=== PATIENT | female | born 1990 | race African-American/Black ===

== ENCOUNTER 2018-07-14 12:14 | Emergency (ER) | payer SELFPAY ==
[~2018-07-14] VITALS: Ht 157.5 cm; Wt 54.4 kg
[2018-07-14 12:31] VITALS: BP 122/77
[2018-07-14] MEDS ORDERED: PERM60CR12 TP (12:56)
--- NOTE | 2018-07-14 12:56 | PHYS DOC ---
Past Medical History Past Medical History: No Pertinent History Past Surgical History: No Surgical History Alcohol Use: None Drug Use: None Adult General Chief Complaint Chief Complaint: SKIN RASH/ABSCESS HPI HPI Patient is a 27 year old female who presents to the emergency room today with complaints of a rash for the last month. Patient states the rash started on her feet between her toes and gradually spread up to her groin and then started to affect her hands. She states that the rash is extremely itchy at night. Patient states that she suspects that this is scabies infection, she has checked her mattresses and sleeping areas for bedbugs and has not found any evidence of bedbugs. Patient states her boyfriend initially had the rash and since it has spread to her. Review of Systems Review of Systems Constitutional: Denies fever or chills [] Respiratory: Denies cough or shortness of breath [] Integument: See HPI Neurologic: Denies headache, focal weakness or sensory changes [] Physical Exam Physical Exam Constitutional: Well developed, well nourished, no acute distress, non-toxic appearance. [] HENT: Normocephalic, atraumatic, bilateral external ears normal, nose normal. [] Eyes: conjunctiva normal, no discharge. [] Skin: Warm, dry; erythematous papules noted in bilateral groins, webbings of hands, and to feet consistent with scabies, Extremities: No cyanosis, no clubbing, ROM intact, no edema. [] Neurologic: Alert and oriented X 3, normal motor function, normal sensory function, no focal deficits noted. [] Psychologic: Affect normal, judgement normal, mood normal. [] Current Patient Data Vital Signs Vital Signs Date Time Temp Pulse Resp B/P (MAP) Pulse Ox O2 Delivery O2 Flow Rate FiO2 07/14/18 12:31 98.2 71 18 122/77 (92) 98 Room Air 98.2 EKG EKG [] Radiology/Procedures Radiology/Procedures [] Course & Med Decision Making Course & Med Decision Making Pertinent Labs and Imaging studies reviewed. (See chart for details) [] Dragon Disclaimer Dragon Disclaimer This electronic medical record was generated, in whole or in part, using a voice recognition dictation system. Departure Departure Impression: Primary Impression: Scabies Disposition: 01 HOME, SELF-CARE Condition: STABLE Patient Instructions: Scabies Additional Instructions: Fill prescription and use as directed. Wash all clothing and bed linens in hot water and dry all clothing, bag items that are not washable in a sealed plastic bag for 72 hours. Follow up with your primary care doctor if symptoms persist. Scripts Permethrin (PERMETHRIN) 60 Gm Cream..g. 1 JULIÁN TP ONCE, #60 GM 0 Refills Prov: BERTO SOUSA APRN 07/14/18 BERTO SOUSA APRN Jul 14, 2018 12:56
== END 2018-07-14 13:09 | disposition home or self-care (01) ==
LOC: ER 12:14
DX: B86 Scabies (principal)
CPT/HCPCS: 99282

== ENCOUNTER 2018-07-24 21:40 | Emergency (ER) | payer SELFPAY ==
[~2018-07-24] VITALS: Ht 157.5 cm; Wt 54.4 kg
[~2018-07-24 21:40] MED LIST: PERM60CR12 TP
[2018-07-24 21:43] VITALS: BP 118/66
[2018-07-24 22:02] LABS: BILIRUBIN,URINE NEGATIVE (NEG); CLARITY,URINE CLOUDY; COLOR,URINE YELLOW; NITRITE,URINE NEGATIVE (NEG); PH,URINE 7.5; PROTEIN,URINE NEGATIVE (NEG-TRACE)
[2018-07-24 22:13] LABS: BACTERIA,URINE 0 /HPF (0-FEW); RBC,URINE 0 /HPF (0-2); SQUAMOUS EPITHELIAL CELL,UR MOD /LPF; WBC,URINE OCC /HPF (0-4)
[2018-07-24] MEDS ORDERED: cefTRIAXone IM 250 MG VIAL IM ONE (22:15)
[2018-07-24] MEDS ORDERED: AZITHROMYCIN 250 MG TABLET. PO ONE (22:15)
[2018-07-24] MEDS ORDERED: metroNIDAZOLE 500 MG TABLET PO ONE (22:15)
[2018-07-24] MEDS ORDERED: METR500T PO (22:36)
--- NOTE | 2018-07-24 22:37 | PHYS DOC ---
Past Medical History Past Medical History: No Pertinent History Past Surgical History: No Surgical History Alcohol Use: None Drug Use: None Adult General Chief Complaint Chief Complaint: VAGINAL PROBLEM HPI HPI Patient is a 27 year old female with no significant medical history who presents today complaining of vaginal discharge, itching and slight abdominal cramping intermittently for one week. Patient states she is concerned about STDs , she would like to be tested and treated. She has a new boyfriend. Review of Systems Review of Systems Constitutional: Denies fever or chills [] Eyes: Denies change in visual acuity, redness, or eye pain [] HENT: Denies nasal congestion or sore throat [] Respiratory: Denies cough or shortness of breath [] Cardiovascular: No additional information not addressed in HPI [] GI: Reports abdominal cramping, denies nausea, vomiting, bloody stools or diarrhea [] : Reports vaginal itching. Denies dysuria or hematuria [] Musculoskeletal: Denies back pain or joint pain [] Integument: Denies rash or skin lesions [] Neurologic: Denies headache, focal weakness or sensory changes [] All other systems were reviewed and found to be within normal limits, except as documented in this note. Current Medications Current Medications Current Medications Medications (Trade) Dose Ordered Sig/[place] Start Time Stop Time Status Last Admin Dose Admin Azithromycin (Zithromax) 1,000 mg 1X ONCE 07/24/18 22:15 07/24/18 22:16 DC 07/24/18 22:20 1,000 MG Ceftriaxone Sodium (Rocephin Im) 250 mg 1X ONCE 07/24/18 22:15 07/24/18 22:16 DC 07/24/18 22:21 250 MG Metronidazole (Flagyl) 2,000 mg 1X ONCE 07/24/18 22:15 07/24/18 22:16 DC 07/24/18 22:20 2,000 MG Allergies Allergies Allergies Coded Allergies Type Severity Reaction Last Updated Verified No Known Drug Allergies 07/24/18 No Physical Exam Physical Exam Constitutional: Well developed, well nourished, no acute distress, non-toxic appearance. [] HENT: Normocephalic, atraumatic, bilateral external ears normal, oropharynx moist, no oral exudates, nose normal. [] Eyes: PERRLA, EOMI, conjunctiva normal, no discharge. [] Neck: Normal range of motion, no tenderness, supple, no stridor. [] Cardiovascular:Heart rate regular rhythm, no murmur [] Lungs & Thorax: Bilateral breath sounds clear to auscultation [] Abdomen: Bowel sounds normal, soft, no tenderness, no masses, no pulsatile masses. [] Pelvic exam External pelvic appears normal, cervix is closed, no CMT, no adnexal tenderness , mild amount of white discharge in the vaginal vault. Skin: Warm, dry, no erythema, no rash. [] Back: No tenderness, no CVA tenderness. [] Extremities: No tenderness, no cyanosis, no clubbing, ROM intact, no edema. [] Neurologic: Alert and oriented X 3, normal motor function, normal sensory function, no focal deficits noted. [] Psychologic: Affect normal, judgement normal, mood normal. [] Current Patient Data Vital Signs Vital Signs Date Time Temp Pulse Resp B/P (MAP) Pulse Ox O2 Delivery O2 Flow Rate FiO2 07/24/18 21:43 97.5 20 118/66 (83) 91 Room Air 97.5 Lab Values Laboratory Tests Test 07/24/18 21:50 07/24/18 21:57 Urine Collection Type Unknown Urine Color Yellow Urine Clarity Cloudy Urine pH 7.5 Urine Specific [place] 1.020 Urine Protein Negative mg/dL (NEG-TRACE) Urine Glucose (UA) Negative mg/dL (NEG) Urine Ketones (Stick) Negative mg/dL (NEG) Urine Blood Negative (NEG) Urine Nitrite Negative (NEG) Urine Bilirubin Negative (NEG) Urine Urobilinogen Dipstick 1.0 mg/dL (0.2 mg/dL) Urine Leukocyte Esterase Negative (NEG) Urine RBC 0 /HPF (0-2) Urine WBC Occ /HPF (0-4) Urine Squamous Epithelial Cells Mod /LPF Urine Bacteria 0 /HPF (0-FEW) Urine Mucus Mod /LPF POC Urine HCG, Qualitative Hcg negative (Negative) Microbiology 07/24/18 Wet Prep - Final, Complete EKG EKG [] Radiology/Procedures Radiology/Procedures [] Course & Med Decision Making Course & Med Decision Making Pertinent Labs and Imaging studies reviewed. (See chart for details) This is a 27-year-old female patient presenting to the ED today with STD concerns. Patient was given prophylaxis treatment. Urine analysis is negative for infection. Wet prep noted for BV-discharge and Flagyl Provided STD education especially the need to use protection. Follow-up with PCP or [facility] in 1-2 weeks as needed. Therese Disclaimer Therese Disclaimer This electronic medical record was generated, in whole or in part, using a voice recognition dictation system. Departure Departure Impression: Primary Impression: Concern about STD in female without diagnosis Additional Impression: Bacterial vaginosis Disposition: 01 HOME, SELF-CARE Condition: STABLE Referrals: NO PCP (PCP) Follow-up with your primary care doctor or the health department or your [facility] as needed Patient Instructions: Bacterial Vaginosis, [id number], Sexually Transmitted Diseases-SportsMed Additional Instructions: You were treated in the emergency room for sexually transmitted diseases. Use protection at all times. Contact your sex partners, let them know you were treated for STDs and ask them to seek treatment too. Scripts Metronidazole (FLAGYL) 500 Mg Tablet 1 TAB PO BID, #10 TAB Prov: BAILEY EUGENE APRN 07/24/18 Problem Qualifiers BAILEY EUGENE APRN Jul 24, 2018 22:37
[2018-07-26 13:25] LABS: GC PROBE Negative (Negative)
== END 2018-07-24 22:20 | disposition home or self-care (01) ==
LOC: ER 21:40
DX: Z20.2 Contact with and (suspected) exposure to infections with a predominantly sexual mode of transmission (principal); N76.0 Acute vaginitis; B96.89 Other specified bacterial agents as the cause of diseases classified elsewhere
CPT/HCPCS: 81001; 81025; 87491; 87591; 96372; 99283; J0696; Q0111; Q0144

== ENCOUNTER 2018-08-11 16:33 | Emergency (ER) | payer SELFPAY ==
[~2018-08-11] VITALS: Ht 160 cm; Wt 57.2 kg
[~2018-08-11 16:33] MED LIST changes: +METR500T PO
[2018-08-11 16:45] VITALS: BP 122/69
[2018-08-11] MEDS ORDERED: METR70GE2 VG (17:09)
--- NOTE | 2018-08-11 17:10 | PHYS DOC ---
Past Medical History Past Medical History: No Pertinent History Past Surgical History: No Surgical History Alcohol Use: None Drug Use: None Adult General Chief Complaint Chief Complaint: VAGINAL PROBLEM HPI HPI Patient is a 27 year old female who presents with an unresolved infection and bacterial vaginosis. The patient states that she was seen in this emergency department. She was placed on by mouth Flagyl. She states that she is unable to take this medication as it is causing severe nausea. She states that she is still having foul-smelling vaginal discharge. She was negative at that time for chlamydia or gonorrhea. She denies any new exposures. Review of Systems Review of Systems Constitutional: Denies fever or chills [] Respiratory: Denies cough or shortness of breath [] Cardiovascular: No additional information not addressed in HPI [] GI: Denies abdominal pain, nausea, vomiting, bloody stools or diarrhea [] : See history of present illness Musculoskeletal: Denies back pain or joint pain [] Integument: Denies rash or skin lesions [] Neurologic: Denies headache, focal weakness or sensory changes [] Endocrine: Denies polyuria or polydipsia [] All other systems were reviewed and found to be within normal limits, except as documented in this note. Allergies Allergies Allergies Coded Allergies Type Severity Reaction Last Updated Verified No Known Drug Allergies 07/24/18 No Physical Exam Physical Exam Constitutional: Well developed, well nourished, no acute distress, non-toxic appearance. [] Cardiovascular:Heart rate regular rhythm, no murmur [] Lungs & Thorax: Bilateral breath sounds clear to auscultation [] Abdomen: Bowel sounds normal, soft, no tenderness, no masses, no pulsatile masses. [] Skin: Warm, dry, no erythema, no rash. [] Back: No tenderness, no CVA tenderness. [] Extremities: No tenderness, no cyanosis, no clubbing, ROM intact, no edema. [] Neurologic: Alert and oriented X 3, normal motor function, normal sensory function, no focal deficits noted. [] Psychologic: Affect normal, judgement normal, mood normal. [] Current Patient Data Vital Signs Vital Signs Date Time Temp Pulse Resp B/P (MAP) Pulse Ox O2 Delivery O2 Flow Rate FiO2 08/11/18 16:45 98.4 98 12 122/69 (86) 99 Room Air 98.4 Lab Values Laboratory Tests Test 08/11/18 16:52 POC Urine HCG, Qualitative Hcg negative (Negative) EKG EKG [] Radiology/Procedures Radiology/Procedures [] Course & Med Decision Making Course & Med Decision Making Pertinent Labs and Imaging studies reviewed. (See chart for details) []The patient's medication has been switched to vaginal metronidazole. The patient was given teaching to abstain from sexual activity for 2 weeks to allow time for the medication to work. She is to follow-up with her bottle packer for a recheck if not improving in 3-4 days. Dragon Disclaimer Dragon Disclaimer This electronic medical record was generated, in whole or in part, using a voice recognition dictation system. Departure Departure Impression: Primary Impression: Bacterial vaginosis Disposition: HOME, SELF-CARE Condition: STABLE Referrals: NO PCP (PCP) Patient Instructions: Bacterial Vaginosis Additional Instructions: Vaginal rest for 2 weeks. Use the gel as prescribed nightly. Follow-up with your bottle packer if not improving in one week. Scripts Metronidazole (METRONIDAZOLE) 70 Gm Gel.w.appl 1 APPFUL VG Q for BV, #70 GM Prov: SYDNEY KIM APRN 08/11/18 SYDNEY KIM APRN Aug 11, 2018 17:10
== END 2018-08-11 17:20 | disposition home or self-care (01) ==
LOC: ER 16:33
DX: N76.0 Acute vaginitis (principal); B96.89 Other specified bacterial agents as the cause of diseases classified elsewhere; R11.0 Nausea
CPT/HCPCS: 81025; 99283